=== PATIENT | male | born 1970 | race Caucasian/White ===

== ENCOUNTER 2017-07-05 11:22 | Inpatient (IN) | payer OTHER ==
[~2017-07-05] VITALS: Ht 182.9 cm; Wt 143.6 kg
--- NOTE | 2017-07-05 12:08 | ED GI/GU/ABDOMINAL COMPLAINT ---
See Addendum History of Present Illness General Chief Complaint: Abdominal Pain/Flank Pain Stated Complaint: NVD, ABDOMINAL PAIN Source: patient, family Exam Limitations: no limitations Vital Signs & Intake/Output Vital Signs & Intake/Output Vital Signs Date Time Temp Pulse Resp B/P B/P Pulse O2 O2 Flow FiO2 Mean Ox Delivery Rate 07/05 1325 97.6 72 18 111/69 94 Room Air 07/05 1257 98.2 07/05 1142 98.2 89 18 130/89 97 Room Air Allergies Coded Allergies: No Known Allergies (07/05/17) Triage Note: 47M REPORTS 2 DAYS OF MID ABD PAIN WHERE LAP BAND IS (PLACED 7 YEARS AGO) SIB DR CHAMORRO [facility]. PT REPORTS DECREASED APPETITE, SELF INDUCED VOMITING FOR RELIEF, AND LAST BM TODAY AND NORMAL. DENIES BLACK/BLOOD STOOLS. DENIES COUGH/FEVER/CHILLS/CP/SOB/PALPITATIONS. PAIN IS CONSTANT DENIES RADIATION. DENIES SYMPTOMS Triage Nurses Notes Reviewed? yes Onset: Gradual Duration: day(s): (3) Timing: no prior history Quality/Severity: cramping, sharpness Severity Numbers: 7 Location: epigastric Radiation: back Activities at Onset: none Prior Abdominal Problems: none Past Sexual History: Unobtainable at this time No Modifying Factors: none Associated Symptoms: nausea/vomiting HPI: Patient is a 47-year-old male with history of lap band done 10 years ago, had a cholecystectomy done over 10 years ago with history of diabetes presenting to the emergency department to complaining of epigastric pain, nausea and vomiting going on for the past 3 days. Patient denies any chest pain or palpitations. Patient does report that the pain radiates to the back at times. No history of similar symptoms in the past. Family reports decreased by mouth intake over the past couple days. Still drinking fluids. No fevers at home. No chills. Denies any blood in emesis. Last bowel movement was this morning and normal. No diarrhea. No recent travel. Denies alcohol use. (Barrington MOSCOSO,Janina) Reconcile Medications Atorvastatin Calcium 40 MG TABLET 1 TAB PO DAILY HLD (Reported) Citalopram Hydrobromide (Citalopram HBr) 40 MG TABLET 1 TAB PO DAILY MENTAL HEALTH (Reported) Clonazepam 2 MG TABLET 1 TAB PO DAILY ANXIETY (Reported) Empagliflozin (Jardiance) 25 MG TABLET 1 TAB PO DAILY DM (Reported) Lisinopril 20 MG TABLET 1 TAB PO DAILY HTN (Reported) Metformin HCl 500 MG TABLET 4 TAB PO QAM DM (Reported) (Flori LEIGH,Johnnie Lopez) Past History Travel History Traveled to [place] past 21 day No Medical History Any Pertinent Medical History? see below for history Neurological: NONE EENT: R EAR DRAINAGE Cardiovascular: hyperlipidemia Respiratory: NONE Gastrointestinal: LAP BAND 2010 Hepatic: NONE Renal: NONE Musculoskeletal: NONE Psychiatric: NONE Endocrine: diabetes Surgical History Surgical History: cholecystectomy, lat band Psychosocial History What is your primary language Urdu Tobacco Use: Current Daily Use Daily Tobacco Use Amount/Type: => 5 Cigarettes daily ETOH Use: denies use Illicit Drug Use: denies illicit drug use Family History Hx Contributory? No (Janina Fine) Review of Systems Review of Systems Constitutional: Reports: no symptoms. Comments Review of systems: See HPI, All other systems negative. Constitutional, no chills fever or weight loss HEENT: No visual changes no sore throat no congestion Cardiovascular: No chest pain ,palpitation , orthopnea or ankle swelling Skin, no jaundice no rashes Respiratory: No dyspnea cough sputum or hemoptysis GI: No diarrhea : No dysuria No hematuria Muscle skeletal: no neck pain, Neurologic: No numbness no confusion, no headaches Psych: No stress anxiety or depression,. Heme/endocrine: No bruising no bleeding no polyuria or polydipsia Immunology: No splenectomy or history of AIDS (Janina Fine) Physical Exam Physical Exam General Appearance: no apparent distress, alert, awake, comfortable, obese Gastrointestinal: soft, tenderness Comments: Well-developed well-nourished person in no acute distress HEENT: Atraumatic, normocephalic, moist oral mucosa. Neck: Normal inspection Back: Nontender, no CVA tenderness. Cardiovascular: Regular rate and rhythms no murmurs rubs or gallops, normal JVP Respiratory: Chest nontender. No respiratory distress.breath sounds clear to auscultation bilaterally Abdomen: Soft, obese, tender to palpation in the epigastric region, without rebound or guarding, nondistended, no appreciable organomegaly. Normal bowel sounds. No ascites Extremity: No edema Neuro: Alert oriented x3 Skin: No appreciable rash on exposed skin, skin is warm and dry. Psych: Mood and affect is normal, memory and judgment is normal. Core Measures ACS in differential dx? Yes Sepsis Present: No Sepsis Focused Exam Completed? No (Barrington MOSCOSO,Janina) Progress Differential Diagnosis: biliary colic, cholangitis, choledocholithiasis, pancreatitis, gallstone pancreatitis gastritis, peptic ulcer disease, small bowel obstruction Plan of Care: Orders Procedure Date/time Status Clear Liquid Diet 07/05 D Active Misc Message 07/05 1546 Active ED Holding Orders 07/05 1546 Active Admit to inpatient 07/05 1546 Active Vital Signs 07/05 1546 Active Code Status 07/05 1546 Active Patient Data 07/05 1506 Active Add-on Test (ER Only) 07/05 1417 Active Add-on Test (ER Only) 07/05 1342 Active Add-on Test (ER Only) 07/05 1312 Active Add-on Test (ER Only) 07/05 1310 Active EKG 07/05 1310 Active TROPONIN LEVEL 07/05 1250 Complete TRIGLYCERIDES 07/05 1250 Complete PARTIAL THROMBOPLASTIN TIME 07/05 1250 Complete PROTHROMBIN TIME 07/05 1250 Complete DIRECT BILIRUBIN 07/05 1250 Complete LIPASE 07/05 1155 Complete LACTIC ACID 07/05 1155 Complete COMPREHENSIVE METABOLIC PANEL 07/05 1155 Complete CBC WITHOUT DIFFERENTIAL 07/05 1155 Complete Current Medications Sig/Rebeka Start time Last Medication Dose Stop Time Status Admin Ibuprofen 600 MG 4 TIMES/DAY PRN 07/05 1545 UNVr (Motrin) Lactated Ringer's 1,000 ML Q6H 07/05 1545 AC (Lactated Ringers) Nicotine 21 MG DAILY 07/05 1505 UNVr 07/05 (Nicoderm) 1530 Sodium Chloride 1,000 ML BOLUS ONE 07/05 1500 CAN (Normal Saline 0.9%) 07/05 1559 Sodium Chloride 1,000 ML BOLUS ONE 07/05 1400 CAN (Normal Saline 0.9%) 07/05 1559 Laboratory Tests 07/05/17 1455: Lactic Acid Cancelled 07/05/17 1250: Anion Gap 16, Estimated GFR > 60, BUN/Creatinine Ratio 15.6, Glucose 186 H, Lactic Acid 1.4, Calcium 10.2, Total Bilirubin 6.0 H, Direct Bilirubin 5.0 H, AST 418 H, ALT 561 H, Alkaline Phosphatase 155 H, Troponin I < 0.01, Total Protein 8.5 H, Albumin 4.7, Globulin 3.8, Albumin/Globulin Ratio 1.2, Triglycerides 133, Lipase > 94484 H, PT 11.5, INR 1.05, APTT 39 H, CBC w Diff MAN DIFF ORDERED, RBC 5.76, MCV 92.4, MCH 30.9, MCHC 33.4, RDW 13.8, MPV 9.0, Gran % 85.7 H, Lymphocytes % 9.2 L, Monocytes % 4.7, Eosinophils % 0.1, Basophils % 0.3, Absolute Granulocytes 11.1 H, Absolute Lymphocytes 1.2, Absolute Monocytes 0.6, Absolute Eosinophils 0, Absolute Basophils 0, Platelet Estimate ADEQUATE, Normocytic RBCs VERIFIED, Normochromic RBCs VERIFIED 07/05/2017 3:06:[address] Mabry, on-call casting assistant, recommending we treated patient likely cryptitis and give IV fluids, pain management. Will likely need an MRCP or ERCP tomorrow. We will contact Dr. Mabry if patient develops any fevers. Patient and family informed of lab test results. complian with plan. pt non-toxic. afebrile. dr. mabry recommending no abx at this time unless pt spikes a fever. Diagnostic Imaging: Viewed by Me: CT Scan. Discussed w/RAD: CT Scan. Radiology Impression: PATIENT: MAIA DENT PRESENT AGE: 47 PATIENT ACCOUNT NO: [id number] : 70 LOCATION: [facility] ORDERING PHYSICIAN: Janina MOSCOSO SERVICE DATE: 07/05/17 EXAM TYPE: CAT - CT ABD & PELVIS W IV CONTRAST EXAMINATION: CT ABDOMEN AND PELVIS WITH CONTRAST CLINICAL INFORMATION: 47-year-old man with abdominal pain. COMPARISON: None TECHNIQUE: Multidetector volumetric imaging was performed of the abdomen and pelvis following IV administration of 95 mL of Optiray 320 intravenous contrast. Sagittal and coronal reformatted images were obtained on the technologist's workstation. DLP: 1591 mGy-cm FINDINGS: The lung bases are clear. There is diffuse fatty infiltration of the liver. The patient has undergone prior placement of a gastric lap band. The spleen, adrenals, and kidneys are normal in appearance. There has been prior cholecystectomy. There is subtle stranding around the body and tail of the pancreas that is felt to be equivocal for acute pancreatitis. No peripancreatic fluid collections or regions of diminished enhancement are appreciated. Nondilated loops of small bowel are unremarkable in appearance. The appendix and terminal ileum are not inflamed. There is mild colonic diverticulosis without evidence of acute inflammation. The prostate, seminal vesicles, and bladder are normal in appearance. There are small bilateral fat-containing inguinal hernias. IMPRESSION: 1. CT findings are felt to be equivocal for mild uncomplicated pancreatitis. Correlation with the patient's serum lipase is suggested. 2. Diffuse hepatic steatosis. DICTATED BY: Leslie Diana MD DATE/TIME DICTATED:07/05/171410 HOT PATCHER:LONNIE DATE/TIME TRANSCRIBED:07/05/171410 CONFIDENTIAL, DO NOT COPY WITHOUT APPROPRIATE AUTHORIZATION. <Electronically signed in Other Vendor System> SIGNED BY: Leslie Diana MD 07/05/17 142 Initial ED EKG: sinus rhythm at 72 bpm (Janina Fine) Departure Departure Time of Disposition: 1502 Disposition: STILL A PATIENT Condition: Stable Clinical Impression Primary Impression: Pancreatitis Qualifiers: Chronicity: acute Pancreatitis type: biliary Acute pancreatitis complication: unspecified Qualified Code: K85.10 - Biliary acute pancreatitis without necrosis or infection Referrals: Gene LEIGH,Ryan Crawford (PCP/Family) Departure Forms: Customer Survey General Discharge Information Admission Note Spoke With: Angelito Garcia MD Documentation of Exam: Documentation of any treatments & extenuating circumstances including Concerns Regarding Discharge (functional status, medication knowledge or non-compliance, living conditions, etc.) that warrant an admission rather than observation: Patient requiring IV hydration, GI consultation, trending liver function tests, lipase and bilirubin, will likely require MRCP or ERCP. Contact GI if patient spikes a fever. Discharge at this time is medically harmful due to likelihood of worsening symptoms. (Janina Fine) PA/SKETCH MAKER Co-Sign Statement Statement: ED Attending supervision documentation- [] I saw and evaluated the patient. I have also reviewed all the pertinent lab results and diagnostic results. I agree with the findings and the plan of care as documented in the PA's/SKETCH MAKER's documentation. [X] I have reviewed the ED Record and agree with the PA's/SKETCH MAKER's documentation. [] Additions or exceptions (if any) to the PAs/SKETCH MAKER's note and plan are summarized below: [] (Flori LEIGH,Johnnie Lopez)
[2017-07-05] MEDS ORDERED: METFORMIN HCL500 M3 PO (12:53)
[2017-07-05] MEDS ORDERED: JARDIANCE25 M1 PO (12:54)
[2017-07-05] MEDS ORDERED: CLONAZEPAM2 M2 PO (12:54)
[2017-07-05] MEDS ORDERED: LISINOPRIL20 M1 PO ×2 (12:54→15:24)
[2017-07-05] MEDS ORDERED: ATORVASTATIN CA40 M1 PO ×2 (12:55→15:25)
[2017-07-05] MEDS ORDERED: CITALOPRAM HBR40 MG PO (12:55)
[2017-07-05 13:10] LABS: ABSOLUTE BASOPHIL COUNT 0 /CUMM (0.0-0.2); ABSOLUTE EOSINOPHIL COUNT 0 /CUMM (0.0-0.7); ABSOLUTE GRANULOCYTE CT 11.1 /CUMM (1.4-6.5); ABSOLUTE LYMPH COUNT 1.2 /CUMM (1.2-3.4); ABSOLUTE MONOCYTE COUNT 0.6 /CUMM (0.10-0.60); BASOPHIL % 0.3 % (0.0-2.0); EOSINOPHIL % 0.1 % (0-5); GRANULOCYTE % 85.7 % (42.2-75.2); HEMATOCRIT 53.2 % (42-52); MEAN CORPUSCULAR HGB 30.9 PG (27.0-31.0); MEAN CORPUSCULAR HGB CONC 33.4 G/DL (33.0-37.0); MEAN CORPUSCULAR VOLUME 92.4 FL (80.0-94.0); PLATELET COUNT 225 /CUMM (130-400); RBC DISTRIBUTION WIDTH 13.8 % (11.5-14.5); RED BLOOD CELL CT 5.76 /CUMM (4.70-6.10); WHITE BLOOD CELL COUNT 12.9 /CUMM (4.8-10.8)
[2017-07-05 13:25] LABS: PT 11.5 SEC (9.4-12.5); PTT 39 SEC (25-37)
--- NOTE | 2017-07-05 14:21 | CT SCAN REPORT ---
EXAMINATION: CT ABDOMEN AND PELVIS WITH CONTRAST CLINICAL INFORMATION: 47-year-old man with abdominal pain. COMPARISON: None TECHNIQUE: Multidetector volumetric imaging was performed of the abdomen and pelvis following IV administration of 95 mL of Optiray 320 intravenous contrast. Sagittal and coronal reformatted images were obtained on the technologist's workstation. DLP: 1591 mGy-cm FINDINGS: The lung bases are clear. There is diffuse fatty infiltration of the liver. The patient has undergone prior placement of a gastric lap band. The spleen, adrenals, and kidneys are normal in appearance. There has been prior cholecystectomy. There is subtle stranding around the body and tail of the pancreas that is felt to be equivocal for acute pancreatitis. No peripancreatic fluid collections or regions of diminished enhancement are appreciated. Nondilated loops of small bowel are unremarkable in appearance. The appendix and terminal ileum are not inflamed. There is mild colonic diverticulosis without evidence of acute inflammation. The prostate, seminal vesicles, and bladder are normal in appearance. There are small bilateral fat-containing inguinal hernias. IMPRESSION: 1. CT findings are felt to be equivocal for mild uncomplicated pancreatitis. Correlation with the patient's serum lipase is suggested. 2. Diffuse hepatic steatosis.
--- NOTE | 2017-07-05 15:06 | History & Physical ---
João Zavala MD 07/05/17 1505: General Information and HPI History of Present Illness: Mr. Felix is a 47-year-old male with past medical history of diabetes mellitus (last hemoglobin A1c 7.1) followed by Dr. Mills, hyperlipidemia, hypertension, anxiety, status post cholecystectomy in 1997, and status post lap band in 2007 who presents with epigastric pain. The patient first started experiencing back pain on Thursday night but did not think much of it. Thursday night, he woke up in tremendous amount of epigastric pain described as constant, like a pulled muscle, with no radiation. He induced emesis and felt better and went back to sleep. Over the week and the pain progressed and he continued to do so emesis a total of 3 times with relief. He had reduced appetite but was still eating. He couldn't sleep much and could not get comfortable so he decided to go to a walk- in clinic in [facility]. There, they told him to come to the emergency room for further evaluation. He denies any chest pain, shortness breath, fever, night sweats, chills, diarrhea, or other issues. He does note that he started a new medication empagliglozin about 3-6 months ago. The patient does not drink any alcohol but he is a current smoker. He smokes 1.5 packs per day and has smoked for 35 years. Allergies/Medications Allergies: Coded Allergies: No Known Allergies (07/05/17) Home Med list Atorvastatin Calcium 40 MG TABLET 1 TAB PO DAILY HLD (Reported) Citalopram Hydrobromide (Citalopram HBr) 40 MG TABLET 1 TAB PO DAILY MENTAL HEALTH (Reported) Clonazepam 2 MG TABLET 1 TAB PO DAILY ANXIETY (Reported) Empagliflozin (Jardiance) 25 MG TABLET 1 TAB PO DAILY DM (Reported) Lisinopril 20 MG TABLET 1 TAB PO DAILY HTN (Reported) Metformin HCl 500 MG TABLET 4 TAB PO QAM DM (Reported) Past History Travel History Traveled to [place] past 21 day No Medical History Neurological: NONE EENT: R EAR DRAINAGE Cardiovascular: hyperlipidemia Respiratory: NONE Gastrointestinal: LAP BAND 2010 Hepatic: NONE Renal: NONE Musculoskeletal: NONE Psychiatric: NONE Endocrine: diabetes Surgical History Surgical History: cholecystectomy, lat band Past Family/Social History Psychosocial History Smoking Status: Current Everyday Smoker ETOH Use: denies use Illicit Drug Use: denies illicit drug use Sexual History Past Sexual History Unobtainable at this time Review of Systems Review of Systems Constitutional: Reports: no symptoms. EENTM: Reports: no symptoms. Cardiovascular: Reports: no symptoms. Respiratory: Reports: no symptoms. GI: Reports: see HPI. Genitourinary: Reports: no symptoms. Musculoskeletal: Reports: see HPI. Skin: Reports: no symptoms. Neurological/Psychological: Reports: no symptoms. Hematologic/Endocrine: Reports: no symptoms. Immunologic/Allergic: Reports: no symptoms. All Other Systems: Reviewed and Negative Exam & Diagnostic Data Last 24 Hrs of Vital Signs/I&O Vital Signs Date Time Temp Pulse Resp B/P B/P Pulse O2 O2 Flow FiO2 Mean Ox Delivery Rate 07/05 1550 97.6 73 21 140/92 97 Room Air 07/05 1325 97.6 72 18 111/69 94 Room Air 07/05 1257 98.2 07/05 1142 98.2 89 18 130/89 97 Room Air Intake & Output 07/05 1600 07/05 0800 07/05 0000 Intake Total 1000 Output Total Balance 1000 Intake, IV 1000 Patient 163.293 kg Weight Physical Exam General Appearance Alert, Oriented X3, Cooperative, No Acute Distress Skin No Rashes, No Breakdown, No Significant Lesion Cardiovascular Regular Rate, Normal S1, Normal S2 Lungs Clear to Auscultation Abdomen obese, with mild tenderness in epigastric region Neurological Normal Speech, Strength at 5/5 X4 Ext, Normal Tone, Sensation Intact, Cranial Nerves 3-12 NL Extremities No Edema, Normal Pulses, No Tenderness/Swelling Last 24 Hrs of Labs/Husam: Laboratory Tests 07/05/17 1455: Lactic Acid Cancelled 07/05/17 1250: Anion Gap 16, Estimated GFR > 60, BUN/Creatinine Ratio 15.6, Glucose 186 H, Lactic Acid 1.4, Calcium 10.2, Total Bilirubin 6.0 H, Direct Bilirubin 5.0 H, AST 418 H, ALT 561 H, Alkaline Phosphatase 155 H, Troponin I < 0.01, Total Protein 8.5 H, Albumin 4.7, Globulin 3.8, Albumin/Globulin Ratio 1.2, Triglycerides 133, Lipase > 08215 H, PT 11.5, INR 1.05, APTT 39 H, CBC w Diff MAN DIFF ORDERED, RBC 5.76, MCV 92.4, MCH 30.9, MCHC 33.4, RDW 13.8, MPV 9.0, Gran % 85.7 H, Lymphocytes % 9.2 L, Monocytes % 4.7, Eosinophils % 0.1, Basophils % 0.3, Absolute Granulocytes 11.1 H, Absolute Lymphocytes 1.2, Absolute Monocytes 0.6, Absolute Eosinophils 0, Absolute Basophils 0, Platelet Estimate ADEQUATE, Normocytic RBCs VERIFIED, Normochromic RBCs VERIFIED, Serum Alcohol Pending Assessment/Plan Assessment: Mr. Felix is a 47-year-old male with past medical history of obesity, diabetes mellitus (last hemoglobin A1c 7.1) followed by Dr. Mills, hyperlipidemia, hypertension, anxiety, status post cholecystectomy in 1997, and status post lap band in 2007 who presents with epigastric pain. On presentation, vital signs were T 98.2, HR 89, RR 18, BP 1:30/89, saturating 97% on room air. Laboratories were significant for white blood cell count 12.9, hemoglobin 17.8, monoxide 20, glucose 186, total bilirubin 6.0, direct bilirubin 5.0, AST 418, ALT 561, alkaline phosphatase 155, troponin less than 0.01, lipase >10,000, triglycerides 133. CT abdomen/pelvis shows diffuse fatty infiltration of the liver and some stranding around the body and tail of the pancreas equivocal for acute pancreatitis with no peripancreatic fluid collection or regions of diminished enhancement. He was treated with acetaminophen, ondansetron, and 1 L normal saline in the emergency room. He will be admitted to general medicine and treated for the following problems: 1. Acute pancreatitis 2. Transaminitis with direct hyperbilirubinemia 3. Tobacco use disorder #Acute pancreatitis: Patient has no history of alcohol use and is status post cholecystectomy. A residual gallstone may have caused this. Other risk factors in this case include SHANAE inhibitor, [id number] diabetes mellitus, and smoking. -Clear liquid diet, advance as tolerated -LR fluid hydration -Pain control -Appreciate GI recommendations -Consider MRCP tomorrow #Transaminitis with direct hyperbilirubinemia: This is most likely related to nonalcoholic fatty liver disease. Patient had a lap band in 2007 but remains obese. Iron studies normal. Autoimmune hepatits less likely but may want to rule it out. -Hold atorvastatin -Follow LFTs -Avoid hepatotoxic medications -Hepatitis serology -Consider serum gammaglobulin level, antinuclear antibody, antismooth muscle antibody, and anti-liver/kidney microsomal antibody-1 #Tobacco use disorder: Patient is a current heavy smoker. -Tobacco cessation counseling -Nicotine patch plus gum #Chronic medical problems: -Hold oral hypoglycemics -Detemir plus insulin sliding scale -Continue home citalopram and clonazepam DVT prophylaxis with enoxaparin Clear liquid diet Full code As Ranked By This Provider Problem List: 1. Pancreatitis Qualifiers Chronicity: acute Pancreatitis type: biliary Acute pancreatitis complication: unspecified Qualified Code: K85.10 - Biliary acute pancreatitis without necrosis or infection Core Measures/Misc (01/18) Acute Coronary Syndrome ACS Diagnosis: No Congestive Heart Failure Congestive Heart Failure Diagnosis No Cerebrovascular Accident CVA/TIA Diagnosis: No VTE (View Protocol) VTE Risk Factors Age>40 No Mechanical VTE Prophylaxis d/t N/A MechProphylax Ordered No VTE Pharm Prophylaxis d/t NA PharmProphylax ordered Sepsis (View protocol) Sepsis Present: No [employer] 07/05/17 1619: Resident Review Statement 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 It started as back pain. He is doing self- induced vomiting to relieve his pain. Denies any fever, chills, change in bowel habits, black tarry or bloody stools. He reports poor appetite. Other review of systems is negative. He had cholecystectomy 10 years ago. Does not drink alcohol. Current every day smoker. According to patient his last blood work was done 3 months ago and his liver functions were normal. Only new medication he was started 3 months ago was Jardiance for better control of his blood sugar. He has been taking statin for last 4-5 years. Vitals and admission: Temperature 98.2, pulse 89, respiratory rate 18, blood pressure 130/89, oxygen saturation 97% on room air. Pertinent physical exam findings: Tenderness on palpation of epigastric area. No rebound tenderness, guarding or rigidity. Bowel sounds present. Pertinent labs: WBC 12.9, hematocrit 53.2, T bili 6, direct bilirubin 5, AST 418 , ALT 561, alkaline phosphatase 155, lipase more than 10,000, serum alcohol less than 10 CT abdomen and pelvis with IV contrast showed mild uncomplicated pancreatitis and diffuse hepatic steatosis. Prior cholecystectomy. In ER he was given IV fluids, antiemetics and pain medications. Assessment and plan 47-year-old man with past medical history of diabetes, hypertension, hyperlipidemia, depression/anxiety is going to be admitted on general medicine floor for acute pancreatitis. Differentials could be due to choledocholithiasis although CBD is normal in caliber. He does not drink alcohol. Triglycerides and Calcium are normal. His Only new medication is Jardiance that was started 3 months ago. No history of abdominal injury or recent ERCP. He might need MRCP or ERCP during this admission. Will start him on clear liquid diet. Advance diet as tolerated. Continue antiemetics and IV fluids. Call GI if patient spikes fever. #2 elevated liver enzymes: Abdominal ultrasound showed heterogeneously echogenic liver suggesting hepatic steatosis. His hematocrit is 53.2 so we will also check iron studies including serum iron, ferritin, TIBC and transferrin saturation. Chances of Hemochromatosis are less likely as per patient his blood work done 3 months ago was normal. Monitor LFTs daily. Avoid hepatotoxic. Will hold statin. Check hepatitis panel. GI consult in a.m. * Continue home medications except statin and lisinopril * Restart lisinopril if blood pressure rises * Continue IV fluids, antiemetics and pain medications * Clear liquid diet for now and advance as tolerated * Call GI if he spikes fever * DVT prophylaxis * Pain management * Full code Angelito Garcia MD 07/05/171928: Attending MD Review Statement Attending Statement Attending MD Statement: examined this patient, discuss w/resident/PA/CANDLE WRAPPER, agreed w/resident/PA/CANDLE WRAPPER, reviewed EMR data (avail) Attending Assessment/Plan: 47M PMH T2DM, HLD, HTN, status post cholecystectomy in 1997, and status post lap band in 2007 presenting with 4 days of progressive epigastric pain and thoracic back pain, worse when eating, found to have evidence of gallstone pancreatitis by labs and imaging. Patient is comfortable, complains of mild pain at this time, with tender epigastric, afebrile and hemodynamically stable. No evidence of cholangitis. 1. Gallstone pancreatitis Plan - Admit to general medicine - NPO - Trend LFTs - GI consult - IV hydration - Morphine PRN - No antibiotics for now, start if febrile or hypotensive - Nicotine patch - Hold home medications for now, sliding scale insulin for DM - DVT PPx
--- NOTE | 2017-07-05 16:36 | ULTRASOUND REPORT ---
EXAMINATION: US ABDOMEN LIMITED CLINICAL INFORMATION: Biliary duct dilatation. COMPARISON: CT earlier same day TECHNIQUE: Real-time imaging of the right upper quadrant abdominal viscera. FINDINGS: PANCREAS: Obscured by bowel gas not well visualized. LIVER: The liver is enlarged heterogeneously echogenic suggesting hepatic steatosis. Liver measures 17.3 cm. No focal liver lesion. GALLBLADDER: Gallbladder has been removed. COMMON BILE DUCT: Normal in caliber measuring 0.6 cm in diameter. RIGHT KIDNEY: Normal. No hydronephrosis. No renal calculi or focal parenchymal lesions. The kidney measures 13 cm in maximum dimension. FREE FLUID: None. IMPRESSION: 1. Status post cholecystectomy. 2. Heterogeneously echogenic liver suggesting hepatic steatosis. 3. The pancreas not visualized obscured by bowel gas.
[2017-07-05 18:43] VITALS: BP 147/78
--- NOTE | 2017-07-05 19:32 | Admission Certification ---
Admission Certification Certification Statement - As attending physician, I certify that at the time of - admission, based on clinical presentation, severity of - symptoms, need for further diagnostic testing and - therapeutic interventions, and risk of adverse outcomes - without in-hospital treatment, in my clinical assessment, - this patient requires an acute hospital stay for a minimum - of two nights or longer. I have also considered psychsocial - factors such as support system, advanced age, financial - issues, cognitive issues, and failed out-patient treatments, - past re-admission history, safety of patient, and lack of - compliance as applicable. Specific rationale supporting this admission is: Gallstone pancreatitis
[2017-07-05 21:29] VITALS: BP 127/80
[2017-07-06 06:44] VITALS: BP 130/88
--- NOTE | 2017-07-06 07:40 | PN- Housestaff ---
See Addendum Subjective Follow-up For: Acute pancreatitis, hepatitis Subjective: No overnight events. Patients pain has completely resolved, he feels much better. No CP, SOB, N/V/D. He has an appetite. Having some nicotine cravings as well. Review of Systems Constitutional: Reports: see HPI. EENTM: Reports: no symptoms. Cardiovascular: Reports: no symptoms. Respiratory: Reports: no symptoms. Gastrointestinal: Reports: see HPI. Genitourinary: Reports: no symptoms. Musculoskeletal: Reports: no symptoms. Skin: Reports: no symptoms. Neurological/Psychological: Reports: no symptoms. Hematologic/Endocrine: Reports: no symptoms. Immunologic/Allergic: Reports: no symptoms. Objective Last 24 Hrs of Vital Signs/I&O Vital Signs Date Time Temp Pulse Resp B/P B/P Pulse O2 O2 Flow FiO2 Mean Ox Delivery Rate 07/06 0644 97.6 89 20 130/88 91 Room Air / 2129 98.4 89 18 127/80 95 / 1843 97.3 68 20 147/78 07/05 1710 98.9 89 22 138/88 96 Room Air / 1550 97.6 73 21 140/92 97 Room Air 03/ 1325 97.6 72 18 111/69 94 Room Air / 1257 98.2 / 1142 98.2 89 18 130/89 97 Room Air Intake & Output 07/06 0800 07/06 0000 07/05 1600 Intake Total 1000 Output Total Balance 1000 Intake, IV 1000 Patient 163.293 kg 163.293 kg Weight Physical Exam General Appearance: Alert, Oriented X3, Cooperative, No Acute Distress Cardiovascular: Regular Rate Lungs: Clear to Auscultation Abdomen: Normal Bowel Sounds, Soft, No Tenderness Extremities: No Edema, Normal Pulses, No Tenderness/Swelling Current Medications: Current Medications Sig/Rebeka Start time Last Medication Dose Route Stop Time Status Admin Acetaminophen 0 .STK-MED ONE 07/05 1237 DC IV Acetaminophen 1,000 MG ONCE ONE 07/05 1230 DC 07/05 N/A 1 UNIT IV 07/05 1244 1257 Citalopram 40 MG DAILY 07/06 1000 AC Hydrobromide PO Clonazepam 2 MG DAILY 07/06 1000 AC PO 07/13 0959 Enoxaparin Sodium 40 MG DAILY 07/06 1000 AC SC Ibuprofen 600 MG 4 TIMES/DAY PRN 07/05 1545 AC PO Insulin Aspart 0 TIDAC 07/05 1700 DC SC Insulin Human Regular 0 Q6 07/06 0737 UNVr SC Lactated Ringer's 1,000 ML Q6H 07/05 1545 AC 07/06 IV 0601 Morphine Sulfate 2 MG Q4P PRN 07/05 1545 AC IV Morphine Sulfate 0 .STK-MED ONE 07/05 1533 DC .ROUTE Morphine Sulfate 2 MG ONCE ONE 07/05 1515 DC 04 IV 07/05 1516 1530 Nicotine 2 MG Q2 PRN 07/05 1615 AC PO Nicotine 0 .STK-MED ONE 07/05 1534 DC TOP Nicotine 21 MG DAILY 07/05 1505 AC 07/05 TOP 1530 Ondansetron HCl 4 MG Q6P PRN 07/05 1645 AC IV Ondansetron HCl 0 .STK-MED ONE 07/05 1237 DC .ROUTE Ondansetron HCl 4 MG ONCE ONE 07/05 1230 DC 07/05 IV 07/05 1231 1257 Sodium Chloride 1,000 ML BOLUS ONE 07/05 1500 CAN IV 07/05 1559 Sodium Chloride 1,000 ML BOLUS ONE 07/05 1400 CAN IV 07/05 1559 Sodium Chloride 1,000 ML BOLUS ONE 07/05 1230 DC 07/05 IV 07/05 1429 1257 Last 24 Hrs of Lab/Husam Results Last 24 Hrs of Labs/Mics: Laboratory Tests 07/05/17 1455: Lactic Acid Cancelled 07/05/17 1250: Anion Gap 16, Estimated GFR > 60, BUN/Creatinine Ratio 15.6, Glucose 186 H, Lactic Acid 1.4, Calcium 10.2, Iron 102, TIBC 316, Ferritin 287.0, Total Bilirubin 6.0 H, Direct Bilirubin 5.0 H, AST 418 H, ALT 561 H, Alkaline Phosphatase 155 H, Troponin I < 0.01, Total Protein 8.5 H, Albumin 4.7, Globulin 3.8, Albumin/Globulin Ratio 1.2, Triglycerides 133, Lipase > 51887 H, PT 11.5, INR 1.05, APTT 39 H, CBC w Diff MAN DIFF ORDERED, RBC 5.76, MCV 92.4, MCH 30.9, MCHC 33.4, RDW 13.8, MPV 9.0, Gran % 85.7 H, Lymphocytes % 9.2 L, Monocytes % 4.7, Eosinophils % 0.1, Basophils % 0.3, Absolute Granulocytes 11.1 H, Absolute Lymphocytes 1.2, Absolute Monocytes 0.6, Absolute Eosinophils 0, Absolute Basophils 0, Platelet Estimate ADEQUATE, Normocytic RBCs VERIFIED, Normochromic RBCs VERIFIED, Serum Alcohol < 10.0 Assessment/Plan Assessment: Mr. Felix is a 47-year-old male with past medical history of obesity, diabetes mellitus (last hemoglobin A1c 7.1) followed by Dr. Mills, hyperlipidemia, hypertension, anxiety, status post cholecystectomy in 1997, and status post lap band in 2007 who presents with epigastric pain. On presentation, vital signs were T 98.2, HR 89, RR 18, BP 1:30/89, saturating 97% on room air. Laboratories were significant for white blood cell count 12.9, hemoglobin 17.8, monoxide 20, glucose 186, total bilirubin 6.0, direct bilirubin 5.0, AST 418, ALT 561, alkaline phosphatase 155, troponin less than 0.01, lipase >10,000, triglycerides 133. CT abdomen/pelvis shows diffuse fatty infiltration of the liver and some stranding around the body and tail of the pancreas equivocal for acute pancreatitis with no peripancreatic fluid collection or regions of diminished enhancement. He was treated with acetaminophen, ondansetron, and 1 L normal saline in the emergency room. He will be admitted to general medicine and treated for the following problems: 1. Acute pancreatitis 2. Transaminitis with direct hyperbilirubinemia 3. Tobacco use disorder #Acute pancreatitis: Patient has no history of alcohol use and is status post cholecystectomy. A residual gallstone may have caused this. Other risk factors in this case include SHANAE inhibitor, [id number] diabetes mellitus, and smoking. His pain has completely resolved this morning. We'll see if GI would like to do ERCP today before advancing his diet. He is hungry. -Nothing by mouth -LR fluid hydration -Pain control -Appreciate GI recommendations -Consider MRCP/ERCP #Transaminitis with direct hyperbilirubinemia: This is most likely related to nonalcoholic fatty liver disease. Patient had a lap band in 2007 but remains obese. Iron studies normal. Autoimmune hepatits less likely but may want to rule it out. -Hold atorvastatin -Follow LFTs -Avoid hepatotoxic medications -Hepatitis serology pending -Consider serum gammaglobulin level, antinuclear antibody, antismooth muscle antibody, and anti-liver/kidney microsomal antibody-1 #Tobacco use disorder: Patient is a current heavy smoker. -Tobacco cessation counseling -Nicotine patch plus gum #Chronic medical problems: -Hold oral hypoglycemics -Detemir plus insulin sliding scale -Continue home citalopram and clonazepam DVT prophylaxis with enoxaparin NPO Full code Problem List: 1. Pancreatitis Pain Ratin Pain Location: no Pain Goal: Remain pain free Pain Plan: no Tomorrow's Labs & Rationales: lft
--- NOTE | 2017-07-06 07:53 | Cons- Gastroenterology ---
General Information and HPI Allergies/Medications Allergies: Coded Allergies: No Known Allergies (07/05/17) Home Med List: Atorvastatin Calcium 40 MG TABLET 1 TAB PO DAILY HLD (Reported) Citalopram Hydrobromide (Citalopram HBr) 40 MG TABLET 1 TAB PO DAILY MENTAL HEALTH (Reported) Clonazepam 2 MG TABLET 1 TAB PO DAILY ANXIETY (Reported) Empagliflozin (Jardiance) 25 MG TABLET 1 TAB PO DAILY DM (Reported) Lisinopril 20 MG TABLET 1 TAB PO DAILY HTN (Reported) Metformin HCl 500 MG TABLET 4 TAB PO QAM DM (Reported) Past History Travel History Traveled to [place] past 21 day No Medical History Blood Transfusion Hx: No Neurological: NONE EENT: R EAR DRAINAGE Cardiovascular: hyperlipidemia Respiratory: NONE Gastrointestinal: LAP BAND 2010 Hepatic: NONE Renal: NONE Musculoskeletal: NONE Psychiatric: NONE Endocrine: diabetes Surgical History Surgical History: cholecystectomy, laP BAND Psychosocial History Where Do You Live? Home Smoking Status: Current Everyday Smoker ETOH Use: denies use Illicit Drug Use: denies illicit drug use Exam & Diagnostic Data Results Pertinent Lab Results: Laboratory Tests 07/06 07/05 07/05 0741 1455 1250 Chemistry Sodium (137 - 145 mmol/L) 138 Potassium (3.5 - 5.1 mmol/L) 4.4 Chloride (98 - 107 mmol/L) 102 Carbon Dioxide (22 - 30 mmol/L) 20 L Anion Gap (5 - 16) 16 BUN (9 - 20 mg/dL) 14 Creatinine (0.7 - 1.2 mg/dL) 0.9 Estimated GFR (>60 ml/min) > 60 BUN/Creatinine Ratio (7 - 25 %) 15.6 Glucose (65 - 99 mg/dL) 186 H Lactic Acid (0.7 - 2.1 mmol/L) Cancelled 1.4 Calcium (8.4 - 10.2 mg/dL) 10.2 Iron (49 - 181 ug/dL) 102 TIBC (261 - 462 ug/dL) 316 Ferritin (17.9 - 464 ng/mL) 287.0 Total Bilirubin (0.2 - 1.3 mg/dL) 6.0 H Direct Bilirubin (< 0.4 mg/dL) 5.0 H AST (17 - 59 U/L) 418 H ALT (21 - 72 U/L) 561 H Alkaline Phosphatase (< 127 U/L) 155 H Troponin I (<0.11 ng/ml) < 0.01 Total Protein (6.3 - 8.2 g/dL) 8.5 H Albumin (3.5 - 5.0 g/dL) 4.7 Globulin (1.9 - 4.2 gm/dL) 3.8 Albumin/Globulin Ratio (1.1 - 2.2 %) 1.2 Triglycerides (<150 mg/dL) 133 Lipase (23 - 300 U/L) > 67903 H Coagulation PT (9.4 - 12.5 SEC) 11.5 INR (0.90 - 1.17) 1.05 APTT (25 - 37 SEC) 39 H Hematology CBC w Diff Pending MAN DIFF ORDERED WBC (4.8 - 10.8 /CUMM) Pending 12.9 H RBC (4.70 - 6.10 /CUMM) Pending 5.76 Hgb (14.0 - 18.0 G/DL) Pending 17.8 Hct (42 - 52 %) Pending 53.2 H MCV (80.0 - 94.0 FL) Pending 92.4 MCH (27.0 - 31.0 PG) Pending 30.9 MCHC (33.0 - 37.0 G/DL) Pending 33.4 RDW (11.5 - 14.5 %) Pending 13.8 Plt Count (130 - 400 /CUMM) Pending 225 MPV (7.4 - 10.4 FL) Pending 9.0 Gran % (42.2 - 75.2 %) 85.7 H Lymphocytes % (20.5 - 51.1 %) 9.2 L Monocytes % (1.7 - 9.3 %) 4.7 Eosinophils % (0 - 5 %) 0.1 Basophils % (0.0 - 2.0 %) 0.3 Absolute Granulocytes (1.4 - 6.5 /CUMM) 11.1 H Absolute Lymphocytes (1.2 - 3.4 /CUMM) 1.2 Absolute Monocytes (0.10 - 0.60 /CUMM) 0.6 Absolute Eosinophils (0.0 - 0.7 /CUMM) 0 Absolute Basophils (0.0 - 0.2 /CUMM) 0 Platelet Estimate (ADEQUATE) ADEQUATE Normocytic RBCs VERIFIED Normochromic RBCs VERIFIED Toxicology Serum Alcohol (<10 MG/DL) < 10.0 Imaging/Other Studies: SERVICE DATE: 07/05/17 EXAM TYPE: CAT - CT ABD & PELVIS W IV CONTRAST EXAMINATION: CT ABDOMEN AND PELVIS WITH CONTRAST CLINICAL INFORMATION: 47-year-old man with abdominal pain. COMPARISON: None TECHNIQUE: Multidetector volumetric imaging was performed of the abdomen and pelvis following IV administration of 95 mL of Optiray 320 intravenous contrast. Sagittal and coronal reformatted images were obtained on the technologist's workstation. DLP: 1591 mGy-cm FINDINGS: The lung bases are clear. There is diffuse fatty infiltration of the liver. The patient has undergone prior placement of a gastric lap band. The spleen, adrenals, and kidneys are normal in appearance. There has been prior cholecystectomy. There is subtle stranding around the body and tail of the pancreas that is felt to be equivocal for acute pancreatitis. No peripancreatic fluid collections or regions of diminished enhancement are appreciated. Nondilated loops of small bowel are unremarkable in appearance. The appendix and terminal ileum are not inflamed. There is mild colonic diverticulosis without evidence of acute inflammation. The prostate, seminal vesicles, and bladder are normal in appearance. There are small bilateral fat-containing inguinal hernias. IMPRESSION: 1. CT findings are felt to be equivocal for mild uncomplicated pancreatitis. Correlation with the patient's serum lipase is suggested. 2. Diffuse hepatic steatosis. Assessment/Plan Consult Acknowledgment - Thank you for your consult request.
[2017-07-06 08:53] LABS: ABSOLUTE BASOPHIL COUNT 0.1 /CUMM (0.0-0.2); ABSOLUTE EOSINOPHIL COUNT 0.1 /CUMM (0.0-0.7); ABSOLUTE GRANULOCYTE CT 6.8 /CUMM (1.4-6.5); ABSOLUTE LYMPH COUNT 2.3 /CUMM (1.2-3.4); ABSOLUTE MONOCYTE COUNT 0.5 /CUMM (0.10-0.60); BASOPHIL % 0.6 % (0.0-2.0); EOSINOPHIL % 1.2 % (0-5); GRANULOCYTE % 69.5 % (42.2-75.2); MEAN CORPUSCULAR HGB 31.1 PG (27.0-31.0); MEAN CORPUSCULAR HGB CONC 34.3 G/DL (33.0-37.0); MEAN CORPUSCULAR VOLUME 90.5 FL (80.0-94.0); MEAN PLATELET VOLUME 9.4 FL (7.4-10.4); PLATELET COUNT 168 /CUMM (130-400); RBC DISTRIBUTION WIDTH 13.1 % (11.5-14.5); RED BLOOD CELL CT 4.82 /CUMM (4.70-6.10); WHITE BLOOD CELL COUNT 9.8 /CUMM (4.8-10.8)
[2017-07-06 09:14] LABS: HEMATOCRIT 43.6 % (42-52)
--- NOTE | 2017-07-06 10:43 | MRI REPORT ---
EXAMINATION: MR ABDOMEN WITHOUT CONTRAST CLINICAL INFORMATION: Transaminitis, hyperbilirubinemia. Elevated lipase. Abdominal pain. COMPARISON: Abdominal imaging 07/05/2017. TECHNIQUE: MR abdomen without contrast was obtained using routine sequences, including MRCP sequences. FINDINGS: No suspicious hepatic lesion. No evidence of significant hepatic steatosis. The gallbladder is absent. No biliary ductal dilatation. No choledocholithiasis demonstrated. No pancreatic ductal dilatation. There is a 1.1 cm T2 bright seemingly cystic focus within the pancreatic head. This does not convincingly connect with the pancreatic duct. No pancreatic duct dilatation. At most, minimal peripancreatic edema without discrete fluid collection. Mild splenomegaly. No hydronephrosis. There are a few scattered renal cysts. No adrenal abnormality. Bowel gas pattern is nonobstructive. LAP-BAND is demonstrated. There is a 1.4 cm upper abdominal lymph node on image 14/26 (series 7) adjacent to the dang hepatis and gastric antrum. Other subcentimeter periportal lymph nodes without bulky adenopathy. Susceptibility artifact along the anterior upper abdomen/abdominal wall reflects postsurgical changes from prior cholecystectomy and LAP-BAND. Visualized portions of the lung bases are unremarkable. No suspicious osseous signal. IMPRESSION: 1. No biliary ductal dilatation or evidence of choledocholithiasis. 2. At most, minimal peripancreatic edema. No peripancreatic fluid collection or pancreatic ductal dilatation. 3. A nonspecific 1 cm cystic lesion in the pancreatic head. No convincing suspicious features. Recommend 12-month follow-up abdominal MRI for reevaluation. 4. Status post cholecystectomy and LAP-BAND. 5. Enlarged 1.4 cm upper abdominal peritoneal lymph node. Other local subcentimeter lymph nodes. This is nonspecific in etiology. Attention on followup recommended.
--- NOTE | 2017-07-06 11:41 | Patient Discharge Instructions ---
Discharge Instructions General Discharge Information You were seen/treated for: Acute pancreatitis, transaminitis Watch for these problems: Fever, chest pain, shortness of breath Special Instructions: Please take all medications as directed. Please follow-up with primary care and gastroenterology. Diet Continue normal diet: Yes Activity Full Activity/No Limits: Yes Acute Coronary Syndrome Inclusion Criteria At DC or during hospital stay patient has or had the following: ACS DIAGNOSIS No Discharge Core Measures Meds if any: Prescribed or Continued at Discharge Meds if any: NOT Prescribed or Continued at Discharge Congestive Heart Failure Inclusion Criteria At DC or during hospital stay patient has or had the following: CHF DIAGNOSIS No Discharge Core Measures Meds if any: Prescribed or Continued at Discharge Meds if any: NOT Prescribed or Continued at Discharge Cerebrovascular accident Inclusion Criteria At DC or during hospital stay patient has or had the following: CVA/TIA Diagnosis No Discharge Core Measures Meds if any: Prescribed or Continued at Discharge Meds if any: NOT Prescribed or Continued at Discharge Venous thromboembolism Inclusion Criteria VTE Diagnosis No VTE Type NONE VTE Confirmed by (Test) NONE Discharge Core Measures - Per Current guidelines, there needs to be overlap - treatment for the first 5 days of Warfarin therapy. - If discharged on Warfarin prior to 5 days of - overlap therapy, the patient will need to be - assessed for post discharge needs including - *Post discharge parental anticoagulation - *Warfarin and/or parental anticoagulation education - *Follow up date to check INR post discharge At least 5 days overlap therapy as Inpatient No Meds if any: Prescribed or Continued at Discharge Note: Overlap Therapy is Warfarin and Anticoagulant Meds if any: NOT Prescribed or Continued at Discharge
--- NOTE | 2017-07-06 11:42 | Discharge Summary ---
Visit Information Visit Dates Admission Date: 07/05/17 Discharge Date: 07/06/17 Hospital Course Course Attending Physician: Angelito Garcia MD Primary Care Physician: Ryan Mills MD Hospital Course: Mr. Felix is a 47-year-old male with past medical history of obesity, diabetes mellitus (last hemoglobin A1c 7.1) followed by Dr. Mills, hyperlipidemia, hypertension, anxiety, status post cholecystectomy in 1997, and status post lap band in 2007 who presented with epigastric pain. On presentation, vital signs were T 98.2, HR 89, RR 18, BP 1:30/89, saturating 97% on room air. Laboratories were significant for white blood cell count 12.9, hemoglobin 17.8, monoxide 20, glucose 186, total bilirubin 6.0, direct bilirubin 5.0, AST 418, ALT 561, alkaline phosphatase 155, troponin less than 0.01, lipase >10,000, triglycerides 133. CT abdomen/pelvis shows diffuse fatty infiltration of the liver and some stranding around the body and tail of the pancreas equivocal for acute pancreatitis with no peripancreatic fluid collection or regions of diminished enhancement. He was treated with acetaminophen, ondansetron, and 1 L normal saline in the emergency room. He was admitted to general medicine and treated for the following problems: 1. Acute pancreatitis 2. Transaminitis with direct hyperbilirubinemia 3. Tobacco use disorder #Acute pancreatitis: The patient presented with signs and symptoms of acute pancreatitis with a lipase greater than 10,000. CT imaging showed mild pancreatitis. The patient was placed nothing by mouth and his pain was treated appropriately. He was also placed on IV fluid hydration and gastroenterology was consulted. MRCP was subsequently performed and it showed no ductal dilatation or gallstone. The etiology of his pancreatitis is unclear. Patient has no history of alcohol use and is status post cholecystectomy. Other risk factors in this case include SHANAE inhibitor, [id number] diabetes mellitus, and smoking. It is possible that the patient passed a gallstone that was residual. The patient's diet was going to be advanced to clear liquids but he decided to leave AGAINST MEDICAL ADVICE. The risks of doing so were thoroughly discussed including acute worsening of his medical condition, complications, and possible . The patient understood these risks and signed the appropriate paperwork. He will follow up with gastroenterology as an outpatient. #Transaminitis with direct hyperbilirubinemia: This is most likely related to nonalcoholic fatty liver disease versus secondary to gallstone pancreatitis. Patient had a lap band in 2007 but remains obese. Iron studies were normal. Autoimmune hepatits less likely but may want to rule it out as an outpatient. He will follow up with gastroenterology for this. #Tobacco use disorder: Patient is a current heavy smoker. He was counseled to seek therapies for quitting smoking. At this time, patient was not interested however. #Chronic medical problems: The patient's oral hypoglycemics were held and he was placed on insulin sliding scale. His home citalopram and clonazepam were continued. Allergies: Coded Allergies: No Known Allergies (07/05/17) Disposition Summary Disposition Principal Diagnosis: 1. Acute pancreatitis Additional Diagnosis: 2. Transaminitis with direct hyperbilirubinemia 3. Tobacco use disorder Discharge Disposition: left against medical adv Discharge Instructions General Discharge Information Code Status: Full Code Patient's Diet: Regular diet Patient's Activity: As tolerated Follow-Up Instructions/Appts: Please take all medications as directed. Please follow-up with primary care and gastroenterology. Medications at Discharge Discharge Medications: Continue taking these medications: Metformin HCl (Metformin HCl) 500 MG TABLET 4 Tablet ORAL Every Morning Comments: NOT GIVEN IN HOSPITAL Clonazepam (Clonazepam) 2 MG TABLET 1 Tablet ORAL DAILY Qty = 30 Comments: NOT GIVEN IN HOSPITAL Empagliflozin (Jardiance) 25 MG TABLET 1 Tablet ORAL DAILY Comments: NOT GIVEN IN HOSPITAL Citalopram Hydrobromide (Citalopram HBr) 40 MG TABLET 1 Tablet ORAL DAILY Qty = 90 Comments: NOT GIVEN IN HOSPITAL Lisinopril (Lisinopril) 20 MG TABLET 1 Tablet ORAL DAILY Comments: NOT GIVEN IN HOSPITAL Atorvastatin Calcium (Atorvastatin Calcium) 40 MG TABLET 1 Tablet ORAL DAILY Comments: NOT GIVEN IN HOSPITAL Copies To: Gene LEIGH,Ryan Crawford; Raghavendra LEIGH,Agustín
== END 2017-07-06 12:24 | disposition left against medical advice (07) | DRG 440 ==
LOC: ERH 11:22 → 2NA 15:46 → ERHI 15:46 → ENRESERV 17:16 → ENTRNSPT 17:34 → EDTRNSPTSTS 17:55 → EDTRNSPT 17:55 → 2NA 18:13 → CMPTRNSPT 18:14 → DELTRNSPT 19:22 → ENPENDDIS 07-06 11:41 → 2NA 07-06 12:24
PROVIDERS: Emergency Medicine; Internal Medicine
DX: K85.10 Biliary acute pancreatitis without necrosis or infection (principal); K75.9 Inflammatory liver disease, unspecified; E11.9 Type 2 diabetes mellitus without complications; E78.5 Hyperlipidemia, unspecified; I10 Essential (primary) hypertension; F41.9 Anxiety disorder, unspecified; Z98.84 Bariatric surgery status; Z90.49 Acquired absence of other specified parts of digestive tract; F17.200 Nicotine dependence, unspecified, uncomplicated; Z79.84 Long term (current) use of oral hypoglycemic drugs; R74.0 Nonspecific elevation of levels of transaminase and lactic acid dehydrogenase [LDH]; E80.6 Other disorders of bilirubin metabolism; Z53.21 Procedure and treatment not carried out due to patient leaving prior to being seen by health care provider
CPT/HCPCS: 2NASP; 74181; 36415; 74177; 93005; 93010; G0480; J0131; J1650; J1885; J2405; J7120